=== PATIENT | male | born 1975 | race Two or more races ===

== ENCOUNTER 2019-11-05 16:37 | Emergency (ER) | payer OTHER ==
[~2019-11-05] VITALS: Ht 170.2 cm; Wt 100.9 kg
[2019-11-05 16:53] VITALS: BP 133/94
[2019-11-05] MEDS ORDERED: IBUPROFEN 200 MG TABLET ONE (17:27)
[2019-11-05] MEDS ORDERED: IBUPROFEN 600 MG TABLET PO ONE (17:30)
== END 2019-11-05 18:16 | disposition home or self-care (01) ==
LOC: ED 18:10
DX: S52.572A Other intraarticular fracture of lower end of left radius, initial encounter for closed fracture (principal); W18.39XA Other fall on same level, initial encounter; Y93.23 Activity, snow (alpine) (downhill) skiing, snowboarding, sledding, tobogganing and snow tubing; Y92.89 Other specified places as the place of occurrence of the external cause; Y99.8 Other external cause status
CPT/HCPCS: 29125; 99283